=== PATIENT | female | born 1990 | race Caucasian/White ===

== ENCOUNTER 2023-02-10 10:26 | Emergency (ER) | payer OTHER, BC ==
[~2023-02-10] VITALS: Ht 172.7 cm; Wt 77.6 kg
[2023-02-10] MEDS ORDERED: ONDANSETRON ODT4 MG PO (16:30)
[2023-02-10 16:43] VITALS: BP 130/81
== END 2023-02-10 17:09 | disposition home or self-care (01) ==
LOC: ED 10:26
DX: O21.1 Hyperemesis gravidarum with metabolic disturbance (principal); Z3A.01 Less than 8 weeks gestation of pregnancy
CPT/HCPCS: 36415; 80053; 81001; 84702; 85025; 96361; 96374; 99284-25; J2405; J7030; J7042